=== PATIENT | female | born 1955 | race Caucasian/White ===

== ENCOUNTER 2019-11-11 14:16 | Emergency (ER) | payer MEDICARE, BC ==
[~2019-11-11] VITALS: Ht 157.5 cm; Wt 66.8 kg
[~2019-11-11 14:16] MED LIST: LIDOcaine 1% W/epiNEPHrine 1:200,000 10ml vial ONE
[2019-11-11 14:37] VITALS: BP 180/86
[2019-11-11] MEDS ORDERED: bacitracin 15gm ointment TP ONE (15:50)
[2019-11-11] MEDS ORDERED: ketorolac trometh. 30mg/ml inj. IM ONE (17:30)
== END 2019-11-11 17:42 | disposition home or self-care (01) ==
LOC: ER 14:17
DX: S01.01XA Laceration without foreign body of scalp, initial encounter (principal); S01.21XA Laceration without foreign body of nose, initial encounter; W01.0XXA Fall on same level from slipping, tripping and stumbling without subsequent striking against object, initial encounter; Y93.01 Activity, walking, marching and hiking; Y92.89 Other specified places as the place of occurrence of the external cause; Y99.8 Other external cause status
CPT/HCPCS: 70450; 70486; 72125; 96372; 99285; J1885; 12001

== ENCOUNTER 2021-04-27 09:36 | Emergency (ER) | payer MEDICARE, BC ==
[~2021-04-27] VITALS: Ht 157.5 cm; Wt 67.0 kg
[2021-04-27] MEDS ORDERED: dexamethasone sod phosphate 10mg/ml inj IV STA (10:08)
[2021-04-27] MEDS ORDERED: normal saline 1000ML IV soln IVB ONE (10:10)
[2021-04-27 10:54] LABS: BASOPHILS % (AUTO) 0.3 % (0-1); EOSINOPHILS # (AUTO) 0.1 X10'3 (0-0.9); EOSINOPHILS % (AUTO) 0.9 % (0-6); HEMOGLOBIN 13.2 g/dl (12.0-16.0); LYMPHOCYTES # (AUTO) 1.4 X10'3 (1.1-4.8); LYMPHOCYTES % (AUTO) 10.7 % (21-51); MEAN CORPUSCULAR HEMOGLOBIN 32.8 PG (27.0-31.0); MEAN CORPUSCULAR VOLUME 96.7 FL (78-98); MEAN PLATELET VOLUME 8.8 FL (7.4-10.4); MONOCYTES # (AUTO) 1.3 X10'3 (0-0.9); MONOCYTES % (AUTO) 9.6 % (2-12); NEUTROPHILS # (AUTO) 10.5 X10'3 (1.8-7.7); NEUTROPHILS % (AUTO) 78.5 % (42-75); PLATELET COUNT 271 X10'3 (140-440); RED BLOOD COUNT 4.03 X10'6 (4.20-5.60); RED CELL DISTRIBUTION WIDTH 12.2 % (11.5-14.5); WHITE BLOOD COUNT 13.3 X10'3 (4.5-11.0)
[2021-04-27 11:15] VITALS: BP 161/81
[2021-04-27 11:25] LABS: ALANINE AMINOTRANSFERASE 15 U/L (12-78); ALBUMIN 3.7 G/DL (3.4-5.0); ALBUMIN/GLOBULIN RATIO 0.9 (1.1-1.5); ALKALINE PHOSPHATASE 73 IU/L (46-116); ANION GAP 13 (8-16); BILIRUBIN,TOTAL 0.8 MG/DL (0.1-1.0); BLOOD UREA NITROGEN 17 MG/DL (7-18); BUN/CREATININE RATIO 45.9 (6.6-38.0); CALCIUM 8.8 MG/DL (8.5-10.1); CHLORIDE 98 MMOL/L (99-107); CREATININE 0.37 MG/DL (0.40-0.90); GLUCOSE 151 MG/DL (70-104); SODIUM 136 MMOL/L (135-145); TOTAL CARBON DIOXIDE 24.6 MMOL/L (24-32); TOTAL PROTEIN 7.6 G/DL (6.4-8.2); eGFR > 90 ML/MIN
[2021-04-27 11:27] LABS: ASPARTATE AMINO TRANSFERASE 25 U/L (10-37); POTASSIUM 5.3 MMOL/L (3.5-5.1)
[2021-04-27] MEDS ORDERED: iohexol 300mg/ml 100ml inj. ONE (12:59)
[2021-04-27] MEDS ORDERED: ampicillin/sulbac 3gm/NS 100ml 100 ML IV SCH (14:00)
[2021-04-27] MEDS ORDERED: CEFD300C3 PO ×3 (14:51→15:59)
== END 2021-04-27 15:10 | disposition home or self-care (01) ==
LOC: ER 09:37
DX: J36 Peritonsillar abscess (principal); R50.9 Fever, unspecified; E10.9 Type 1 diabetes mellitus without complications; Z79.2 Long term (current) use of antibiotics
CPT/HCPCS: 36415; 70491; 80053; 85025; 87081; 87880; 96365; 99285; J0295; J7030; Q9967

== ENCOUNTER 2021-12-07 10:10 | Emergency (ER) | payer MEDICARE, BC ==
[~2021-12-07] VITALS: Ht 157.5 cm; Wt 67.7 kg
[~2021-12-07 10:10] MED LIST changes: +CEFD300C3 PO; -LIDOcaine 1% W/epiNEPHrine 1:200,000 10ml vial ONE
[2021-12-07 10:13] VITALS: BP 165/88
--- NOTE | 2021-12-07 13:33 | NUR ---
DOPLER PULSE IN PT'S LT FOOT IS 75. PROVIDER NOTIFIED
== END 2021-12-07 14:22 | disposition home or self-care (01) ==
LOC: ER 10:11
DX: S82.492A Other fracture of shaft of left fibula, initial encounter for closed fracture (principal); W18.39XA Other fall on same level, initial encounter; Y93.89 Activity, other specified; Y92.89 Other specified places as the place of occurrence of the external cause; Y99.8 Other external cause status; I10 Essential (primary) hypertension; E11.9 Type 2 diabetes mellitus without complications; E03.9 Hypothyroidism, unspecified; Z79.899 Other long term (current) drug therapy
CPT/HCPCS: 29505; 73564; 73610; 99284

== ENCOUNTER 2023-09-15 15:23 | Emergency (ER) | payer BC, MEDICARE ==
[~2023-09-15] VITALS: Ht 157.5 cm; Wt 67.3 kg
[2023-09-15 15:24] VITALS: TEMP 98.8
[2023-09-15 15:50] LABS: BASOPHILS % (AUTO) 0.4 % (0-1); EOSINOPHILS % (AUTO) 0.5 % (0-6); HEMATOCRIT 37.7 % (35.0-45.0); HEMOGLOBIN 12.9 g/dl (12.0-16.0); LYMPHOCYTES # (AUTO) 0.8 X10'3 (1.1-4.8); LYMPHOCYTES % (AUTO) 12.9 % (21-51); MEAN CORPUSCULAR HEMOGLOBIN 33.4 PG (27.0-31.0); MEAN CORPUSCULAR HGB CONC 34.3 g/dL (33.0-36.5); MEAN CORPUSCULAR VOLUME 97.3 FL (78-98); MEAN PLATELET VOLUME 8.2 FL (7.4-10.4); MONOCYTES % (AUTO) 16.4 % (2-12); NEUTROPHILS # (AUTO) 4.2 X10'3 (1.8-7.7); NEUTROPHILS % (AUTO) 69.8 % (42-75); PLATELET COUNT 250 X10'3 (140-440); RED BLOOD COUNT 3.87 X10'6 (4.20-5.60); RED CELL DISTRIBUTION WIDTH 13.5 % (11.5-14.5)
[2023-09-15 16:00] LABS: ALANINE AMINOTRANSFERASE 21 U/L (12-78); ALBUMIN 3.8 G/DL (3.4-5.0); ALBUMIN/GLOBULIN RATIO 1.1 (1.1-1.5); ALKALINE PHOSPHATASE 78 IU/L (46-116); ANION GAP 10 (8-16); ASPARTATE AMINO TRANSFERASE 17 U/L (10-37); BILIRUBIN,TOTAL 0.5 MG/DL (0.1-1.0); BLOOD UREA NITROGEN 13 MG/DL (7-18); BUN/CREATININE RATIO 19.7 (10.0-20.0); CALCIUM 8.7 MG/DL (8.5-10.1); CHLORIDE 100 MMOL/L (99-107); CREATININE 0.66 MG/DL (0.40-0.90); GLUCOSE 144 MG/DL (70-104); POTASSIUM 3.8 MMOL/L (3.5-5.1); SODIUM 135 MMOL/L (135-145); TOTAL CARBON DIOXIDE 24.6 MMOL/L (24-32); TOTAL PROTEIN 7.4 G/DL (6.4-8.2); eCRCL 63 ML/MIN; eGFR 89 ML/MIN
[2023-09-15 16:06] LABS: PRO BRAIN NATRIURETIC PEPTIDE 132 PG/ML (0-125)
[2023-09-15 16:23] LABS: PLATELET ESTIMATE NORMAL; TOTAL CELLS COUNTED 100
[2023-09-15] MEDS: mag hydrox/Alum hydrox/simeth 30ml oral suspension PO ONE (16:23)
[2023-09-15] MEDS: LIDOcaine 2% Viscous 15ml cup MM ONE (16:23)
[2023-09-15] MEDS ORDERED: ketorolac trometh. 30mg/ml inj. IV ONE (16:45)
[2023-09-15] MEDS: ketorolac tromethamine 15mg/ml inj. IV ONE (16:53)
[2023-09-15] MEDS ORDERED: OMEP40CA21 PO (17:34)
[2023-09-15 18:03] VITALS: BP 147/76; PULSE 98; RESP 16; O2SAT 97
== END 2023-09-15 18:06 | disposition home or self-care (01) ==
LOC: ER 15:24
DX: K21.9 Gastro-esophageal reflux disease without esophagitis (principal); R07.89 Other chest pain; I10 Essential (primary) hypertension; E11.9 Type 2 diabetes mellitus without complications; E03.9 Hypothyroidism, unspecified; Z79.2 Long term (current) use of antibiotics; Z79.899 Other long term (current) drug therapy
CPT/HCPCS: 36415; 71045; 80053; 83880; 84484; 85007; 85025; 93005; 96374; 99285; J1885